=== PATIENT | male | born 1960 | race Caucasian/White ===

== ENCOUNTER 2023-01-02 12:56 | Outpatient (CLI) | payer OTHER, SELFPAY ==
--- NOTE | 2023-01-02 13:42 | CT_ITS ---
WS: [id number] CT ANGIOGRAPHY OF THE ABDOMINAL AORTA WITH RUNOFF TO THE ANKLES HISTORY: ABDOMINAL AORTIC ANEURYSM TECHNIQUE: Arterial injection is performed during imaging to evaluate the aorta and runoff vessels to the ankles. MIP and volume rendering imaging has also been performed. All images are reviewed. All C T scans at [facility] use at least one of these dose optimization techniques: automated exposu re control; mA and/or kV adjustment per patient size (includes targeted exams where dose is matched t o clinical indication); or iterative reconstruction. Contrast: Omnipaque 350; 100 mL IV. DLP: 815.32 mGy.cm COMPARISON: None available. Breathing motion artifact at the lung bases. Heart is very mildly enlarged. Small hiatal hernia. Abdominal aorta: Mild abdominal aortic aneurysm extends over length of 7.5 cm. Maximum diameter below the renal arteries is 3.9 cm. Aneurysm tapers at the bifurcation. Patent celiac axis and SMA. Renal arteries are patent. There is a mixture of calcified plaque and intimal thickening in the aneurysm. RIGHT lower extremity arterial system: Moderate calcification throughout the iliac artery. 50% stenos is distal common iliac artery. Calcified plaque throughout the internal and external iliacs. SFA calc ification. 60% stenosis Steven's canal. No stenosis popliteal artery. Small caliber anterior tibial a rtery. Scattered calcified plaque below the knee. Three-vessel runoff to the ankles via small vessels . LEFT lower extremity arterial system: Moderate calcified plaque common iliac artery with mild aneurys mal dilatation to 2.0 cm. Opacification of the lower extremity is limited. Moderate calcification in the internal and external iliacs. 50% stenosis external iliac artery. Deep profunda and SFA bifurcati on is intact. Calcified plaque throughout the SFA. Plaque increasing in Steven's canal. No stenosis g reater than 50%. Popliteal artery is intact. Three-vessel runoff to the ankle via small vessels. Normal size liver. Cyst within the caudate lobe measures 2.3 x 2.1 cm. Normal portal vein. Cholelithi asis without acute cholecystitis. Normal common bile duct. Negative pancreas. Negative spleen. No adr enal mass. Bilateral fat-containing renal masses. Largest fat-containing mass also contains a solid c omponent exophytic from the lateral RIGHT kidney. Mass measures 2.5 x 3.6 cm. Smaller fat-containing mass medial mid LEFT kidney measures 1.4 x 1.3 cm. There are a few other cortical nodules which may b e cysts. These are too small to characterize. Otherwise kidney enhances normally. No adenopathy or as cites. No GI tract obstruction. Distal colon and sigmoid diverticulosis without acute diverticulitis. Negative urinary bladder. Prostate enlargement. Patent inguinal canals. No bone destruction. CT/CT angio abd aorta runof [id number] IMPRESSION: 1. Mild abdominal aortic aneurysm. Maximum diameter is 3.9 cm. 2. Minimal aneurysmal dilatation LEFT common iliac artery 2.0 cm. 3. 50% stenosis distal RIGHT common iliac artery. 4. 60% stenosis RIGHT SFA at Steven's canal. 5. 50% stenosis LEFT external iliac artery. 6. Three-vessel runoff to the ankle via small vessels which are likely calcifi ed. 7. Bilateral fat-containing renal masses. Most consistent with angiomyolipomas . These can be associated with tuberous sclerosis. If these have not been previ ously described consider evaluation by MRI with and without contrast to confirm these are benign. 8. Colonic diverticulosis without acute diverticulitis. 9. Cholelithiasis without acute cholecystitis.
[2023-01-02] MEDS: iohexol 350 mg/mL 500 mL Btl (per mL) IV (14:07)
== END 2023-01-02 12:57 | disposition home or self-care (01) ==
LOC: RAD 12:58
PROVIDERS: PCP Family Medicine; Visit Provider Family Medicine
DX: I71.40 Abdominal aortic aneurysm, without rupture, unspecified (principal); I77.1 Stricture of artery; K57.90 Diverticulosis of intestine, part unspecified, without perforation or abscess without bleeding; K80.20 Calculus of gallbladder without cholecystitis without obstruction
CPT/HCPCS: 75635; Q9967

== ENCOUNTER 2023-09-28 12:13 | Outpatient (CLI) | payer MEDICARE, SELFPAY ==
--- NOTE | 2023-09-28 | ECG_ITS ---
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 Interpretive Statements NAME OF STUDY: TREADMILL STRESS TEST INDICATION: Chest Pain, PROCEDURE: At the baseline, the patient's blood pressure was PROCEDURE: At the baseline, the patient's blood pressure was 134/96 with a heart rate of 78. The baseline electrocardiogram showed normal sinus rhythm with normal ST-Ts. Rare PVCs. The patient exercised for 6 minutes on a standard Jairo protocol. Patient attained a maximum heart rate of 138 beats per minute(88% of the maximum predicted heart rate) with a blood pressure at the peak exercise of 190/86 mm Hg. The EKG at the peak exercise revealed no significant changes. Patient did not have any chest pain or any significant cardiac arrhythmias with the exercise During the recovery phase, there were no new changes. Blood pressure at the end of the recovery phase was 117/62 mm Hg with a heart rate of 92 per minute. CONCLUSION: 1. No significant EKG changes with the treadmill exercise . 2. No exercise-induced chest pain or cardiac arrhythmia 3. Slightly impaired exercise tolerance, attained a maximum of 7.0 METs; maximum VO2 of 24.5 4. Hypertensive response to exercise Electronically Signed On 10-03-2023 14:04:03 [employer] by Sam Patel M.D. [email or web address]
[2023-09-28 12:55] VITALS: BMI 37.7
[2023-09-28 13:38] VITALS: BP 117/62; PULSE 93
== END 2023-09-28 12:14 | disposition home or self-care (01) ==
PROVIDERS: PCP Family Medicine; Visit Provider Family Medicine
DX: R07.9 Chest pain, unspecified (principal)
CPT/HCPCS: 93017

== ENCOUNTER 2024-05-18 19:13 | Emergency (ER) | payer MEDICARE, SELFPAY ==
[2024-05-18 19:20] VITALS: BP 162/108; PULSE 102; RESP 14; TEMP 36.8; O2SAT 98
--- NOTE | 2024-05-18 21:28 | W.ED.WOUNDLC ---
HPI - Wound/Laceration General: Chief Complaint: Wound/Laceration Stated Complaint: Nose injury Time Seen by Provider: 05/18/24 21:28 History of Present Illness: 63-year-old male patient comes in today with injury to the nose. Patient was under his vehicle working on it when he hit his head and then scraped his nose. Patient has a abrasion to the right nostril of the nose. Patient came in due to no tetanus shot in 10 years. Review of Systems General: Reports: 10 or more systems reviewed and unremarkable except in HPI and below Physical Exam Const: COMMON NORMALS: alert HENMT: NOSE: Other nasal findings present (1 cm superficial laceration/abrasion to the right nostril) Neck/C-Spine: COMMON NORMALS: full ROM Resp: COMMON NORMALS: normal respiratory effort Cardio: COMMON NORMALS: regular rate RATE: regular rate Back/Pelvis: COMMON NORMALS: thoracic and lumbar spine normal to inspection Extremity: COMMON NORMALS: full ROM Neuro: SENSORIUM/ORIENTATION: Yes alert Skin: TRAUMA: laceration (Superficial right nostril) Course Vital Signs: Vital signs: Vital Signs Temperature 98.3 F 05/18/24 19:20 Pulse Rate 102 H 05/18/24 19:20 Respiratory Rate 14 05/18/24 19:20 Blood Pressure 162/108 05/18/24 19:20 Pulse Oximetry 98 05/18/24 19:20 MDM - Wound/Laceration Medical Decision Making 63-year-old male patient comes in today for injury to the right nostril. On exam patient has a 1 cm linear appearing abrasion/laceration. Patient appears nontoxic. Patient appears in no acute distress. Respirations are even lungs are clear to auscultation. Vital signs are normal except for elevated blood pressure. Differential diagnosis need for prophylaxis tetanus, need for prophylaxis antibiotics, laceration, contusion. No signs of serious injury was noted. Patient was updated on his tetanus and will be covered with antibiotics. Patient reported understanding and agreed to plan. No radiology studies performed this visit Discharge Plan Discharge Patient Disposition: Home Clinical Impression: Abrasion of nose, initial encounter Condition: Stable Prescriptions: New bacitracin 500 unit/gram ointment 1 applic topical BID Qty: 14.2 0RF doxycycline hyclate 100 mg tablet 100 mg PO BID 7 Days Qty: 14 0RF Discharge Orders: Discharge ED (Routine); Ordered 05/18/24 Ordered By: Prabhakar Osorio Referrals: Werner Carballo MD [Primary Care Provider] - Discharge Diet: Usual diet Discharge Activity: Increase activity as tolerated Patient Instructions: Abrasion (ED) Activity Restrictions/Additional Instructions: Clean wound gently with mild soap and water twice a day. Apply bacitracin antibiotic ointment. Take oral antibiotic as directed. Follow-up with primary care as needed. Return to ED for new concerns. 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
[2024-05-18] MEDS: tetanus-dipt-pertussis 0.5 mL SDV IM (21:56)
[2024-05-18] MEDS: bacitracin ointment Pkt 1 EACH TOPICAL (21:58)
[2024-05-18] MEDS: doxycycline 100 mg Tablet PO (21:58)
== END 2024-05-18 22:15 | disposition home or self-care (01) ==
PROVIDERS: Emergency Provider Nurse Practitioner Family; PCP Family Medicine
DX: S01.21XA Laceration without foreign body of nose, initial encounter (principal); W22.8XXA Striking against or struck by other objects, initial encounter; Z23 Encounter for immunization
CPT/HCPCS: 90471; 90715; 99283